=== PATIENT | male | born 1970 | race Caucasian/White ===

== ENCOUNTER → 2016-12-08 | Outpatient (CLI) | payer BC ==
[2016-12-08 16:09] LABS: BLOOD UREA NITROGEN 13 mg/dl (7-18); CALCIUM 8.7 mg/dl (8.5-10.1); CARBON DIOXIDE 28 mmol/L (21-32); CHLORIDE 107 mmol/L (98-107); GLUCOSE 106 mg/dl (70-99); POTASSIUM 3.8 mmol/L (3.5-5.1); SODIUM 144 mmol/L (136-145)
[2016-12-09 06:43] LABS: ESTIMATED AVERAGE GLUCOSE 97 mg/dl; HA1C FLAG Normal (Normal)
== END | disposition home or self-care (01) ==
LOC: C.LAB 14:14
DX: R73.9 Hyperglycemia, unspecified (principal)

== ENCOUNTER → 2017-05-25 | Outpatient (CLI) | payer BC ==
[2017-05-25 11:47] LABS: MEAN CELL VOLUME 89.1 fL (80-100); MEAN CORPUSCULAR HEMOGLOBIN 31.2 pg (25-34); MEAN PLATELET VOLUME 8.8 fL (7.4-10.4); PLATELET COUNT 92 K/uL (130-400); RED BLOOD COUNT 4.49 M/uL (4.7-6.1); WHITE BLOOD COUNT 4.86 K/uL (4.8-10.8)
[2017-05-25 12:11] LABS: BASO % 0.2 %; BASO ABS # 0.01 K/uL (0-0.2); COMPLETE YES; EOS % 2.3 %; IG% 0.2 %; LYMPH % 47.1 %; LYMPH ABS # 2.29 K/uL (1.2-3.4); MONO % 8.2 %
[2017-05-25 12:19] LABS: CHOLESTEROL/HDL RATIO 3.2; PROSTATE SPECIFIC ANTIGEN 0.397 ng/ml (0.000-4.000); URIC ACID 4.3 mg/dl (2.6-7.2)
--- NOTE | 2017-05-29 11:50 | CODING QUERY MEDICAL NECESSITY ---
SUPPORTING DIAGNOSIS NEEDED Dr. Sanabria, A supporting diagnosis is required for the test/procedure performed on this patient in order for us to be reimbursed by the patient's insurance. Please provide a supporting diagnosis for the following test/procedure listed below next to the test name along with your signature. *If there is no additional diagnosis for this patient that would support the following test/procedure please document that below next to the test/procedure. Test(s)/Procedure(s) that require a supporting diagnosis: * [id number] PSA DIAGNOSIS: DATE OF SERVICE: 05/25/17 Provider Signature: Date: Thank you Elías Mortensen [facility] Information Management Once completed, please kindly fax back to [phone] For questions please call [phone]
== END | disposition home or self-care (01) ==
LOC: C.LAB 10:51
DX: E78.5 Hyperlipidemia, unspecified (principal); E88.81 Metabolic syndrome and other insulin resistance; E79.0 Hyperuricemia without signs of inflammatory arthritis and tophaceous disease; N40.0 Benign prostatic hyperplasia without lower urinary tract symptoms

== ENCOUNTER → 2017-10-14 | Outpatient (CLI) | payer BC ==
--- NOTE | 2017-10-14 07:41 | DIAGNOSTIC IMAGING REPORT ---
ABDOMEN LIMITED (US) CLINICAL HISTORY: 47 years-old Male presenting with THROMBOCYTOPENIA. TECHNIQUE: Real-time grayscale and limited color Doppler ultrasound imaging of the abdomen limited to the upper quadrants was performed. COMPARISON: None. FINDINGS: Liver: Hyperechogenic parenchyma with heterogeneous echotexture, likely indicating fibrosis or steatosis. The liver measures 17 cm in maximal sagittal dimension. No sonographic evidence of hepatic mass. Main portal vein patent with normal directional flow. Biliary: No intrahepatic biliary ductal dilatation. Ascites: None. Spleen: Normal in appearance though minimally enlarged, measuring 13.5 cm. Normal vascularity at the splenic hilum. IMPRESSION: 1. Evidence of hepatic steatosis or fibrosis. 2. Mild splenomegaly. Electronically signed by: Orestes Galarza M.D. 10/14/2017 7:39 AM Dictated Date/Time: 10/14/2017 7:37 AM
== END | disposition home or self-care (01) ==
LOC: C.ULTR 07:08
DX: D69.6 Thrombocytopenia, unspecified (principal)